=== PATIENT | female | born 1955 | race Two or more races ===

== ENCOUNTER 2017-05-29 09:33 | Emergency (ER) | payer OTHER ==
[2017-05-29 09:48] VITALS: TEMP 98; O2SAT 91
--- NOTE | 2017-05-29 09:56 | EDPHY ---
H & P Time Seen by Provider: 05/29/17 09:39 HPI/ROS: CHIEF COMPLAINT: Right knee pain History by patient HISTORY OF PRESENT ILLNESS: 61-year-old woman presents complaining of pain and swelling in her right knee after it twisted and maybe slipped while trying to step up onto a ladder. She felt the knee given twist. She was holding onto the ladder did not fall. But then felt like her knee ballooned up. She did not hear or feel a pop. She has been able to stand and walk but with pain. She denies any numbness or tingling. She denies any prior knee injury. She is not on any antibiotics. She took some Aleve and iced it. This happened while she was at work. REVIEW OF SYSTEMS: As in HPI, and all other systems reviewed and are negative Smoking Status: Never smoked Physical Exam: General Appearance: Alert and no distress. Eyes: Pupils equal and round no injection. Musculoskeletal: Neck is supple and nontender. Extremities: Right knee positive swelling medial greater than lateral, positive tenderness along the medial patella and medial joint line tenderness, full range of motion but with pain, full extension and flexion. Positive pain with valgus stress. No obvious tendon laxity but exam is limited due to swelling. DP pulses 2+ and equal to the left. Distal sensation is intact. Patient has full range of motion of toes and ankles. Patient has full range of motion of the right hip. There is no pelvic tenderness. Positive pain in the knee with internal external rotation of the hip. Skin: No rashes or lesions except as described above. Constitutional: Initial Vital Signs Temperature (C) 36.6 C 05/29/17 09:45 Heart Rate 81 05/29/17 09:45 Respiratory Rate 18 05/29/17 09:45 Blood Pressure 172/100 H 05/29/17 09:45 O2 Sat (%) 91 L 05/29/17 09:45 O2 Delivery Mode Room Air MDM/Departure - MDM Imaging: Discussed imaging studies w/ call or contact centre operator Radiologist ED Course/Re-evaluation: 61-year-old woman presents after twisting and slip injury with pain and swelling to right knee. Patient taken Aleve at home and felt this was helping with the pain. She was given ice in the ER. Exam is concerning for medial collateral ligament tear or strain. X-ray showed no evidence of fracture. Patient is placed in a knee immobilizer and referred to Orthopedics for follow- up. We discussed home care including RICE treatment. - Depart Disposition: Home, Routine, Self-Care Clinical Impression: Sprain of unspecified site of right knee, initial encounter Condition: Good Instructions: Knee Sprain (ED) Additional Instructions: You were seen by Dr. Vidya Jarvis today. Wear the knee immobilizer for comfort. You may put as much weight as you can stand on you knee. Take ibuprofen or Aleve as needed for pain. Use ice for pain and swelling every 1-2 hours for 15 minutes at a time. Please follow up with Dr. Brito or 1 of his partners in Orthopedics in the next week for re- evaluation. Return for any worsening or new concerns. Referrals: WILLIAM ROMERO [Other] - As per Instructions Damian Brito MD [Medical Doctor] - As per Instructions
[2017-05-29 10:52] VITALS: BP 167/62; PULSE 86; RESP 20
== END 2017-05-29 10:51 | disposition home or self-care (01) ==
LOC: CED 09:33
DX: S83.91XA Sprain of unspecified site of right knee, initial encounter (principal); X58.XXXA Exposure to other specified factors, initial encounter
CPT/HCPCS: 73564-PO; L1830